=== PATIENT | female | born 1960 | race Caucasian/White ===

== ENCOUNTER 2016-07-07 12:37 | Emergency (ER) | payer BC ==
[2016-07-07] MEDS ORDERED: IPRATROPIUM/ALBUTEROL (0.5MG/3MG) NEB INH ONE (12:43)
[2016-07-07] MEDS ORDERED: 0.9 % SODIUM CHLORIDE 1000ML 1,000 ML IV PRN (12:43)
[2016-07-07 12:52] LABS: BASO % 0.6 % (0-6); EOS % 3.2 % (0-6); GRAN % 61.4 % (47-80); HEMATOCRIT 43.3 % (35.0-47.0); HEMOGLOBIN 14.3 gm/dl (11.6-16.0); LYMPH % 20.4 % (16-45); MEAN CELL VOLUME 98.4 fl (81-97); MEAN CORPUSCULAR HEMOGLOBIN 32.5 pg (27-33); MEAN PLATELET VOLUME 9.8 fl (7.4-10.4); MONO % 14.4 % (0-9); PLATELET COUNT 261 K/uL (130-400); RED CELL DISTRIBUTION WIDTH 14.8 % (11.5-14.5); WHITE BLOOD COUNT W/O DIFF 6.7 K/uL (4.2-12.2)
--- NOTE | 2016-07-07 12:59 | Emergency Department Record ---
History of Present Illness - General Chief Complaint: Shortness of breath Stated Complaint: RENÉ Time Seen by Provider: 07/07/16 12:40 Source: Patient, RN notes reviewed Mode of Arrival: Ambulatory - History of Present Illness Initial Comments: congestion and cough for 2-3 days but nasal congestion for 10 days and her is coming down with the same things. PMH ME in september 2015 and a stent placed at [facility]. Patient denies chest pain and no nause ,vomiting or diarrhea. Patient is overweight. PCP Dr Yuan Pinon MD Complaint: Cough, Shortness of breath Onset/Timin -: Days(s) Improves With: Nothing Worsens With: Exertion, Lying flat, Movement Known History Of: COPD, Diabetes Context: Recent URI Associated Symptoms: Cough Treatments Prior to Arrival: Asprin, Bronchodilator - Related Data Home Oxygen Therapy: No Home Medications Medication Instructions Recorded Confirmed Last Taken Aclidinium [place] [Tudorza 400 mcg IH DAILY 09/24/15 07/07/16 07/07/16 Pressair] Budesonide/Formoterol Fumarate 10.2 gm IH DAILY 09/24/15 07/07/16 07/07/16 [Symbicort 160-4.5 Mcg Inhaler] Fluoxetine HCl [Prozac] 40 mg PO DAILY 09/24/15 07/07/16 07/07/16 Metformin HCl [Glucophage Ir] 500 mg PO BID 09/24/15 07/07/16 07/07/16 Tramadol HCl [Ultram] 50 mg PO Q8H PRN 09/24/15 07/07/16 07/07/16 Zolpidem Tartrate [Ambien] 10 mg PO QHS 09/24/15 07/07/16 07/06/16 Allergies Allergy/AdvReac Type Severity Reaction Status Date / Time Penicillins [PENICILLINS] Allergy Intermediate HIVES Verified 09/24/15 09:02 Travel Screening - Travel/Exposure Within Last 30 Days Have you traveled within the last 30 days?: No - Travel/Exposure Within Last Year Have you traveled outside the [place] in the last year?: No - Additonal Travel Details Have you been exposed to anyone with a communicable illness?: No - Travel Symptoms Symptom Screening: None Review of Systems Reviewed: No additional complaints except as noted below Constitutional: Reports: As per HPI. Denies: Chills, Fever, Malaise, Night sweats, Weakness, Weight change Eyes: Reports: As per HPI. Denies: Eye discharge, Eye pain, Photophobia, Vision change ENT: Reports: As per HPI, Congestion. Denies: Dental pain, Ear pain, Epistaxis , Hearing loss, Throat pain Respiratory: Reports: As per HPI, Cough, Dyspnea, Wheezes. Denies: Hemoptysis, Stridor Cardiovascular: Reports: As per HPI. Denies: Arrhythmia, Chest pain, Dyspnea on exertion, Edema, Murmurs, Orthopnea, Palpitations, Paroxysmal nocturnal dyspnea, Rheumatic Fever, Syncope Endocrine: Reports: As per HPI. Denies: Fatigue, Heat or cold intolerance, Polydipsia, Polyuria Gastrointestinal: Reports: As per HPI. Denies: Abdominal pain, Constipation, Diarrhea, Hematemesis, Hematochezia, Melena, Nausea, Vomiting Genitourinary: Reports: As per HPI. Denies: Abnormal menses, Discharge, Dyspareunia, Dysuria, Frequency, Hematuria, Incontinence, Retention, Urgency Musculoskeletal: Reports: As per HPI. Denies: Arthralgia, Back pain, Gout, Joint swelling, Myalgia, Neck pain Skin: Reports: As per HPI. Denies: Bruising, Change in color, Change in hair/ nails, Lesions, Pruritus, Rash Neurological: Reports: As per HPI. Denies: Abnormal gait, Confusion, Headache, Numbness, Paresthesias, Seizure, Tingling, Tremors, Vertigo, Weakness Psychiatric: Reports: As per HPI. Denies: Anxiety, Auditory hallucinations, Depression, Homicidal thoughts, Suicidal thoughts, Visual hallucinations Hematological/Lymphatic: Reports: As per HPI. Denies: Anemia, Blood Clots, Easy bleeding, Easy bruising, Swollen glands Past Medical History - SOCIAL HISTORY Smoking Status: Current every day smoker - RESPIRATORY Hx Respiratory Disorders: Yes Hx COPD: Yes - CARDIOVASCULAR Hx Cardio Disorders: No - NEURO Hx Neuro Disorders: No - GI Hx GI Disorders: Yes Hx Reflux: Yes - Hx Genitourinary Disorders: No - ENDOCRINE Hx Endocrine Disorders: Yes Hx Diabetes: Yes - MUSCULOSKELETAL Hx Musculoskeletal Disorders: Yes Hx Arthritis: Yes - PSYCH Hx Psych Problems: Yes Hx Anxiety: Yes - HEMATOLOGY/ONCOLOGY Hx Hematology/Oncology Disorders: No Family Medical History Hx Diabetes: Mother, Brother/Sister Hx Heart Disease: Father *Heart Comment: Father before 50, of [place] Hx HTN: Father, Mother, Brother/Sister Physical Exam - General General Appearance: Alert, Oriented x3, Cooperative, Moderate distress - Head Head exam: Normal inspection - Eye Eye exam: Normal appearance, PERRL Pupils: Normal accommodation - ENT ENT exam: Normal exam, Mucous membranes moist, Normal external ear exam, Normal orophraynx, TM's normal bilaterally Ear exam: Normal external inspection. negative: External canal tenderness Nasal Exam: Normal inspection. negative: Discharge, Sinus tenderness Mouth exam: Normal external inspection, Tongue normal Teeth exam: Normal inspection. negative: Dental caries Throat exam: Normal inspection. negative: Tonsillar erythema, Tonsillar exudate - Neck Neck exam: Normal inspection, Full ROM. negative: Tenderness - Respiratory Respiratory exam: Respiratory distress (with exertion), Wheezes - Cardiovascular Cardiovascular Exam: Regular rate, Normal rhythm, Normal heart sounds - GI/Abdominal GI/Abdominal exam: Soft, Normal bowel sounds. negative: Tenderness - Rectal Rectal exam: Deferred - exam: Deferred - Extremities Extremities exam: Normal inspection, Full ROM, Normal capillary refill. negative: Tenderness - Back Back exam: Reports: Normal inspection, Full ROM. Denies: Muscle spasm, Rash noted, Tenderness - Neurological Neurological exam: Alert, Normal gait, Oriented X3, Reflexes normal - Psychiatric Psychiatric exam: Normal affect, Normal mood - Skin Skin exam: Dry, Intact, Normal color, Warm Course Vital Signs 07/07/16 07/07/16 12:42 12:51 Temperature 97.8 F Pulse Rate 64 66 Respiratory 21 17 Rate Blood Pressure 138/69 Pulse Ox 94 L 95 - Reevaluation(s) Reevaluation #1: patient still short of breath and she wants to be admitted at [facility] and currently not settling down enough to send home. 07/07/16 14:23 Reevaluation #2: Patient very dyspneic getting up to sit on the comode 07/07/16 14:25 07/07/16 14:25 Reevaluation #3: discussed case with Dr. Mcallister and he accepted the admission. 07/07/16 14:53 Medical Decision Making - Data Complexity MDM Data: Labs Ordered and/or Reviewed (wbc 6,700), X-Ray Ordered and/or Reviewed, EKG Ordered and/or Reviewed (EKG old inferior wall ME and no acute changes today ) - Lab Data Result diagrams: 07/07/16 12:45 07/07/16 12:45 Lab Results 07/07/16 Range/Units 12:45 WBC 6.7 (4.2-12.2) K/uL RBC 4.40 (3.80-5.40) M/uL Hgb 14.3 (11.6-16.0) gm/dl Hct 43.3 (35.0-47.0) % MCV 98.4 H (81-97) fl MCH 32.5 (27-33) pg MCHC 33.0 (32-36) g/dl RDW 14.8 H (11.5-14.5) % Plt Count 261 (130-400) K/uL MPV 9.8 (7.4-10.4) fl Gran % 61.4 (47-80) % Lymphocytes % 20.4 (16-45) % Monocytes % 14.4 H (0-9) % Eosinophils % 3.2 (0-6) % Basophils % 0.6 (0-6) % Disposition Clinical Impression: Bronchitis COPD (chronic obstructive pulmonary disease) Qualifiers: COPD type: COPD with acute exacerbation Qualified Code(s): J44.1 - Chronic obstructive pulmonary disease with (acute) exacerbation Disposition: Acute Care Hospital Transfer Condition: (2) Stable Forms: Patient Portal Access Time of Disposition: 14:38
[2016-07-07] MEDS ORDERED: METHYLPREDNISOLONE PF 125MG/VIAL IVP ONE (13:03)
[2016-07-07 13:08] LABS: ANION GAP 15.8 (7-16); BLOOD UREA NITROGEN 11 mg/dL (7-17); CARBON DIOXIDE 26.2 mmol/L (22-30); CREATININE 0.6 mg/dL (0.52-1.04); EST GLOMERULAR FILTRATION RATE > 60 ml/min; GLUCOSE,RANDOM 158 mg/dL (70-110)
[2016-07-07] MEDS ORDERED: ALBUTEROL SULFATE (0.083%) 2.5 MG/3 ML NEB INH ONE ×2 (13:11→14:55)
[2016-07-07 13:26] LABS: TROPONIN I < 0.012 ng/mL (0.00-0.034)
[2016-07-07] MEDS ORDERED: CEFTRIAXONE SODIUM 1 GM in 0.9 % SODIUM CHLORIDE 100ML 100 ML IVPB ONE (14:34)
[2016-07-07] MEDS ORDERED: AZITHROMYCIN 500 MG TABLET PO ONE (14:37)
--- NOTE | 2016-07-11 12:26 | RADIOLOGY REPORT ---
DATE: 07/07/2016. EXAM: TWO VIEWS OF THE CHEST. HISTORY: The patient has had a cough, wheezing, and shortness of breath for one week. COMPARISON: Study dated 09/24/2015. TECHNIQUE: Two views of the chest were provided. FINDINGS: The cardiomediastinal silhouette is within normal limits for size and contour. The dinora appear unremarkable. There is no radiographic evidence of a focal infiltrate or pleural effusion. IMPRESSION: NO RADIOGRAPHIC EVIDENCE OF AN ACUTE INTRATHORACIC PROCESS. JOB NUMBER: [id number] [facility]
== END 2016-07-07 15:38 | disposition short-term general hospital (02) ==
LOC: ER 12:37
DX: J44.1 Chronic obstructive pulmonary disease with (acute) exacerbation (principal); E11.9 Type 2 diabetes mellitus without complications; F17.210 Nicotine dependence, cigarettes, uncomplicated; I25.2 Old myocardial infarction; Z79.84 Long term (current) use of oral hypoglycemic drugs
CPT/HCPCS: 71020; 80048; 82553; 84484; 85025; 85730; 93005; 93010; 94640; 96365; 96375; 99285; J2930; J7613

== ENCOUNTER 2016-07-29 19:56 | Inpatient (IN) | payer BC, MEDICARE ==
--- NOTE | 2016-07-29 20:37 | Emergency Department Record ---
History of Present Illness - General Chief complaint: Swelling of legs Stated complaint: CELULITIS BOTH LEGS Time Seen by Provider: 07/29/16 20:30 Source: Patient Mode of Arrival: Ambulatory Limitations: No limitations - History of Present Illness Initial comments: 56 yo female presents with bilateral erythema of the lower legs with swelling that had started mild the last 2 days and then increased today. No fevers or chills. She has had cellulitis in the past. She is a diabetic. No fevers. No chills. No cough. No HTN but she has CAD. No allergies to antibiotics. No weeping or blisters on the skin. She does not recall and scratches or injury. No weakness or numbness. Onset/Timin -: Days(s) Location: Left, Right, Lower Leg Severity scale (1-10): 8 Quality: Aching, Burning Consistency: Constant - Related Data Home Medications Medication Instructions Recorded Confirmed Last Taken Aclidinium [place] [Tudorza 400 mcg IH DAILY 09/24/15 07/29/16 Unknown Pressair] Fluoxetine HCl [Prozac] 40 mg PO DAILY 09/24/15 07/29/16 Unknown Tramadol HCl [Ultram] 50 mg PO Q8H PRN 09/24/15 07/29/16 Unknown Aspirin [Aspir-Low] 81 mg PO DAILY 07/07/16 07/29/16 Unknown Atorvastatin Calcium [Lipitor] 40 mg PO DAILY 07/07/16 07/29/16 Unknown Budesonide/Formoterol Fumarate 10.2 gm IH DAILY 07/07/16 07/29/16 Unknown [Symbicort 160-4.5 Mcg Inhaler] Metoprolol Tartrate [Lopressor] 25 mg PO Q12H 07/07/16 07/29/16 Unknown Omeprazole 40 mg PO DAILY 07/07/16 07/29/16 Unknown Ticagrelor [Brilinta] 90 mg PO BID 07/07/16 07/29/16 Unknown Zolpidem Tartrate 10 mg PO QHS PRN 07/07/16 07/29/16 Unknown Calcium Carbonate [Calcium] 600 mg PO DAILY 07/29/16 07/29/16 Unknown Cholecalciferol (Vitamin D3) 5,000 unit PO DAILY 07/29/16 07/29/16 Unknown [Vitamin D3] Cyanocobalamin (Vitamin B-12) 2,000 mcg PO DAILY 07/29/16 07/29/16 Unknown [Vitamin B-12] Garlic 1,000 mg PO DAILY 07/29/16 07/29/16 Unknown Metformin HCl [Glucophage] 500 mg PO BID 07/29/16 07/29/16 Unknown Multivitamin [Daily Multiple 1 each PO DAILY 07/29/16 07/29/16 Unknown Vitamin] Allergies Allergy/AdvReac Type Severity Reaction Status Date / Time Penicillins [PENICILLINS] Allergy Intermediate HIVES Verified 09/24/15 09:02 clindamycin HCl Allergy RASH Verified 07/29/16 21:07 [From Cleocin] clindamycin palmitate HCl Allergy RASH Verified 07/29/16 21:07 [From Cleocin] clindamycin phosphate Allergy RASH Verified 07/29/16 21:07 [From Cleocin] Travel Screening - Travel/Exposure Within Last 30 Days Have you traveled within the last 30 days?: No Review of Systems Constitutional: Denies: Chills, Fever, Malaise, Weakness Eyes: Denies: Eye discharge ENT: Denies: Congestion, Throat pain Respiratory: Denies: Cough, Dyspnea, Hemoptysis, Wheezes Cardiovascular: Denies: Chest pain, Palpitations, Syncope Endocrine: Denies: Fatigue Gastrointestinal: Denies: Abdominal pain, Diarrhea, Nausea, Vomiting Genitourinary: Denies: Dysuria, Urgency Musculoskeletal: Reports: Joint swelling. Denies: Arthralgia, Back pain Skin: Reports: Change in color, Rash. Denies: Bruising Neurological: Denies: Headache Psychiatric: Denies: Anxiety Hematological/Lymphatic: Denies: Blood Clots, Easy bleeding, Easy bruising, Swollen glands Past Medical History - SOCIAL HISTORY Smoking Status: Light tobacco smoker (<10/day) Alcohol Use: None Drug Use: None - RESPIRATORY Hx Respiratory Disorders: Yes Hx COPD: Yes - CARDIOVASCULAR Hx Cardio Disorders: No Hx Cardiac Cath: Yes Hx Heart Attack: Yes (Stent placed 09/24/2015) Comment:: Heart attack September [id number] - NEURO Hx Neuro Disorders: No - GI Hx GI Disorders: Yes Hx Reflux: Yes - Hx Genitourinary Disorders: No - ENDOCRINE Hx Endocrine Disorders: Yes Hx Diabetes: Yes - MUSCULOSKELETAL Hx Musculoskeletal Disorders: Yes Hx Arthritis: Yes - PSYCH Hx Psych Problems: Yes Hx Anxiety: Yes - HEMATOLOGY/ONCOLOGY Hx Hematology/Oncology Disorders: No Family Medical History Any Significant Family History?: Yes Hx Diabetes: Mother, Brother/Sister Hx Heart Disease: Father *Heart Comment: Father before 50, of [place] Hx HTN: Father, Mother, Brother/Sister Physical Exam - General General Appearance: Alert, Oriented x3, Cooperative, No acute distress Limitations: No limitations - Head Head exam: Normal inspection - Eye Eye exam: Normal appearance, PERRL. negative: Conjunctival injection - ENT ENT exam: Normal exam Ear exam: Normal external inspection Nasal Exam: Normal inspection Mouth exam: Normal external inspection Teeth exam: Normal inspection Throat exam: Normal inspection - Neck Neck exam: Normal inspection, Full ROM. negative: Tenderness - Respiratory Respiratory exam: Normal lung sounds bilaterally. negative: Respiratory distress - Cardiovascular Cardiovascular Exam: Regular rate, Normal rhythm, Normal heart sounds - GI/Abdominal GI/Abdominal exam: Soft - Rectal Rectal exam: Deferred - exam: Deferred - Extremities Extremities exam: Full ROM, Normal capillary refill, Pedal edema, Tenderness. negative: Normal inspection Image of Full Body: 1 - moderately prominent erythema, no blisters, warm to the touch 2 - erythema, warmth to the touch, no blisters or bruises - Back Back exam: Reports: Normal inspection, Full ROM. Denies: Muscle spasm, Rash noted, Tenderness - Neurological Neurological exam: Alert, Normal gait, Oriented X3, Reflexes normal - Psychiatric Psychiatric exam: Normal affect, Normal mood - Skin Skin exam: Erythema Course Vital Signs 07/29/16 20:08 Temperature 98.1 F Pulse Rate [ 95 H Pulse Ox Probe] Respiratory 20 Rate Blood Pressure 133/89 [Left Arm] Pulse Ox 94 L - Reevaluation(s) Reevaluation #1: The labs were reviewed No acute changes of the CBC She has mild increase in CRP at 2.1 No significant changes of the CMP I recommend admission for IV antibiotics given her DM and cellulitis Her PCP is Dr Pinon of [facility] [place]. I offered transfer if she preferred. She prefers to stay at [facility] IV Kefzol and Vanco 07/29/16 21:36 07/30/16 05:00 Medical Decision Making - Lab Data Result diagrams: 07/29/16 20:47 07/29/16 20:47 Disposition Disposition: Admit Clinical Impression: Cellulitis Qualifiers: Site of cellulitis: extremity Site of cellulitis of extremity: lower extremity Laterality: unspecified laterality Qualified Code(s): L03.119 - Cellulitis of unspecified part of limb Disposition: Home, Self-Care Decision to Admit: Admit from ER Decision to Admit Date: 07/29/16 Decision to Admit Time: 21:42 Condition: (1) Good Time of Disposition: 21:42
[2016-07-29] MEDS ORDERED: CLINDAMYCIN 600MG/50ML PREMIX 600 MG in DEXTROSE 1 BAG IV ONE (20:40)
[2016-07-29] MEDS ORDERED: VANCOMYCIN HCL 1,500 MG in 0.9 % SODIUM CHLORIDE 500ML 500 ML IVPB ONE (20:55)
[2016-07-29 21:04] LABS: BASO % 0.2 % (0-6); EOS % 3.3 % (0-6); GRAN % 59.3 % (47-80); HEMATOCRIT 43.8 % (35.0-47.0); HEMOGLOBIN 14.4 gm/dl (11.6-16.0); LYMPH % 27.9 % (16-45); MEAN CELL VOLUME 97.8 fl (81-97); MEAN CORPUSCULAR HEMOGLOBIN 32.1 pg (27-33); MEAN CORPUSCULAR HGB CONC 32.9 g/dl (32-36); MEAN PLATELET VOLUME 10.2 fl (7.4-10.4); MONO % 9.3 % (0-9); PLATELET COUNT 262 K/uL (130-400); RED BLOOD COUNT 4.48 M/uL (3.80-5.40); RED CELL DISTRIBUTION WIDTH 14.9 % (11.5-14.5); WHITE BLOOD COUNT W/O DIFF 8.8 K/uL (4.2-12.2)
[2016-07-29 21:13] LABS: INR 0.95; PARTIAL THROMBOPLASTIN TIME 28.2 SECONDS (24.5-39.1); PROTHROMBIN TIME (PATIENT) 10.7 SECONDS (9.5-12.1)
[2016-07-29 21:16] LABS: ALB/GLOB RATIO 1.3 (1.1-1.8); ALBUMIN 4.3 gm/dL (3.5-5.0); ALKALINE PHOSPHATASE 115 U/L (38-126); ALT/SGPT 54 U/L (9-52); ANION GAP 14.3 (7-16); AST/SGOT 41 U/L (14-36); BILIRUBIN,TOTAL 0.47 mg/dL (0.2-1.3); BLOOD UREA NITROGEN 14 mg/dL (7-17); C-REACTIVE PROTEIN 2.1 mg/dL (0.0-0.9); CARBON DIOXIDE 28.7 mmol/L (22-30); CREATININE 0.8 mg/dL (0.52-1.04); EST GLOMERULAR FILTRATION RATE > 60 ml/min; GLUCOSE,RANDOM 169 mg/dL (70-110); TOTAL PROTEIN 7.6 gm/dL (6.3-8.2)
[2016-07-29] MEDS ORDERED: CEFAZOLIN 2 Gram 2 GM in DEXTROSE 1 BAG IVPB ONE (21:26)
[2016-07-29] MEDS ORDERED: HYDROCODONE/APAP 7.5/325MG TABLET PO ONE (21:35)
[2016-07-29 22:03] LABS: ERYTHROCYTE SEDIMENTATION RATE 26 mm/hr (0-30)
[2016-07-30] MEDS: VANCOMYCIN HCL 1,500 MG in 0.9 % SODIUM CHLORIDE 500ML 500 ML IVPB SCH ×3 (00:28→22:28)
[2016-07-30] MEDS: METOPROLOL TART 25 MG TABLET PO SCH ×3 (00:30→20:24)
[2016-07-30] MEDS: METFORMIN 500 MG TABLET PO SCH ×3 (00:30→20:25)
[2016-07-30] MEDS: CEFAZOLIN 2 Gram 2 GM in DEXTROSE 1 BAG IVPB SCH ×3 (01:01→17:58)
[2016-07-30 06:42] LABS: BASO % 0.5 % (0-6); EOS % 4.7 % (0-6); GRAN % 53.1 % (47-80); HEMATOCRIT 41.1 % (35.0-47.0); HEMOGLOBIN 13.4 gm/dl (11.6-16.0); LYMPH % 30.7 % (16-45); MEAN CELL VOLUME 98.8 fl (81-97); MEAN CORPUSCULAR HEMOGLOBIN 32.2 pg (27-33); MEAN CORPUSCULAR HGB CONC 32.6 g/dl (32-36); MEAN PLATELET VOLUME 10.6 fl (7.4-10.4); PLATELET COUNT 248 K/uL (130-400); RED BLOOD COUNT 4.16 M/uL (3.80-5.40); WHITE BLOOD COUNT W/O DIFF 7.9 K/uL (4.2-12.2)
[2016-07-30 07:18] LABS: ANION GAP 13.8 (7-16); BLOOD UREA NITROGEN 17 mg/dL (7-17); CARBON DIOXIDE 29.2 mmol/L (22-30); CREATININE 0.7 mg/dL (0.52-1.04); EST GLOMERULAR FILTRATION RATE > 60 ml/min; GLUCOSE,RANDOM 180 mg/dL (70-110)
[2016-07-30] MEDS: HYDROCODONE/APAP 7.5/325MG TABLET PO PRN ×2 (08:27→18:33)
[2016-07-30] MEDS ORDERED: FLUOXETINE HCL 20 MG CAPSULE PO SCH (10:00)
[2016-07-30] MEDS ORDERED: ASPIRIN 81 MG TABEC PO SCH (10:00)
[2016-07-30] MEDS ORDERED: ATORVASTATIN 20 MG TABLET PO SCH (10:00)
[2016-07-30] MEDS ORDERED: ENOXAPARIN 40 MG/0.4 ML SYR SC SCH (10:00)
[2016-07-30] MEDS ORDERED: ACLIDINIUM BROMIDE 400 MCG IH SCH (10:00)
--- NOTE | 2016-07-30 10:14 | History & Physical ---
History of Present Illness - Date of Service Date of Service for History & Physical: 08/02/16 - History of Present Illness Admitting Diagnosis: Cellulitis, Diabetes History of Present Illness: Sylvia Durand is a 56 y/o female with chronic history of cellulitis presented with 2 day history bilat lower extremity erythema, pain and increased swelling. Symptoms very similar to previous cellulitis infections. Of note, she reports first occurrence of BLE cellulitis 5 years ago in which she "was so sick", she was admitted for IV antibiotics, was followed by infectious diseases and eventually was followed by a wound doctor in the [facility] for RLE wound care due to blistering of skin. Has had reoccurrence of cellulitis since and has only received IV antibiotics. No known Hx MRSA. Has consulted with a "vascular specialist" 5 years ago after hospitalization and worked up for peripheral vascular insufficiency PCP: Dr Yuan Pinon Pertinent past medical history includes: previous cellulitis BLE, diabetes, CAD , [place] with stent placement 2015 Past surgical history includes: no significant report Travel Screening - Travel/Exposure Within Last 30 Days Have you traveled within the last 30 days?: No - Travel/Exposure Within Last Year Have you traveled outside the [place] in the last year?: No - Additonal Travel Details Have you been exposed to anyone with a communicable illness?: No Review of Systems Constitutional: Denies: Chills, Fever, Malaise, Weakness Eyes: Denies: Eye discharge ENT: Denies: Congestion, Throat pain Respiratory: Denies: Cough, Dyspnea, Hemoptysis, Wheezes Cardiovascular: Denies: Chest pain, Palpitations, Syncope Endocrine: Denies: Fatigue Gastrointestinal: Denies: Abdominal pain, Diarrhea, Nausea, Vomiting Genitourinary: Denies: Dysuria, Urgency Musculoskeletal: Reports: Joint swelling. Denies: Arthralgia, Back pain Skin: Reports: Change in color, Rash. Denies: Bruising Neurological: Denies: Headache Psychiatric: Denies: Anxiety Hematological/Lymphatic: Denies: Blood Clots, Easy bleeding, Easy bruising, Swollen glands Past Medical History - SOCIAL HISTORY Smoking Status: Light tobacco smoker (<10/day) Alcohol Use: None Drug Use: None - RESPIRATORY Hx Respiratory Disorders: Yes Hx COPD: Yes - CARDIOVASCULAR Hx Cardio Disorders: No Hx Cardiac Cath: Yes Hx Heart Attack: Yes (Stent placed 09/24/2015) Comment:: Heart attack September [id number] - NEURO Hx Neuro Disorders: No - GI Hx GI Disorders: Yes Hx Reflux: Yes - Hx Genitourinary Disorders: No - ENDOCRINE Hx Endocrine Disorders: Yes Hx Diabetes: Yes - MUSCULOSKELETAL Hx Musculoskeletal Disorders: Yes Hx Arthritis: Yes - PSYCH Hx Psych Problems: Yes Hx Anxiety: Yes - HEMATOLOGY/ONCOLOGY Hx Hematology/Oncology Disorders: No Family Medical History Any Significant Family History?: Yes Hx Diabetes: Mother, Brother/Sister Hx Heart Disease: Father *Heart Comment: Father before 50, of [place] Hx HTN: Father, Mother, Brother/Sister H&P Meds/Allergies - Allergies Allergies: Allergies Allergy/AdvReac Type Severity Reaction Status Date / Time Penicillins [PENICILLINS] Allergy Intermediate HIVES Verified 09/24/15 09:02 clindamycin HCl Allergy RASH Verified 07/29/16 21:07 [From Cleocin] clindamycin palmitate HCl Allergy RASH Verified 07/29/16 21:07 [From Cleocin] clindamycin phosphate Allergy RASH Verified 07/29/16 21:07 [From Cleocin] - Home Medications Home Medications Medication Instructions Recorded Confirmed Last Taken Aclidinium [place] [Tudorza 1 inh IH BID MDD 2 09/24/15 07/31/16 Unknown Pressair] Fluoxetine HCl [Prozac] 40 mg PO DAILY 09/24/15 07/29/16 Unknown Tramadol HCl [Ultram] 50 mg PO Q8H PRN 09/24/15 07/29/16 Unknown Aspirin [Aspir-Low] 81 mg PO DAILY 07/07/16 07/29/16 Unknown Atorvastatin Calcium [Lipitor] 40 mg PO DAILY 07/07/16 07/29/16 Unknown Budesonide/Formoterol Fumarate 2 puff IH BID MDD 4 07/07/16 07/31/16 Unknown [Symbicort 160-4.5 Mcg Inhaler] Metoprolol Tartrate [Lopressor] 25 mg PO Q12H 07/07/16 07/29/16 Unknown Omeprazole 40 mg PO DAILY 07/07/16 07/29/16 Unknown Ticagrelor [Brilinta] 90 mg PO BID 07/07/16 07/29/16 Unknown Zolpidem Tartrate 10 mg PO QHS PRN 07/07/16 07/29/16 Unknown Calcium Carbonate [Calcium] 600 mg PO DAILY 07/29/16 07/29/16 Unknown Cholecalciferol (Vitamin D3) 5,000 unit PO DAILY 07/29/16 07/29/16 Unknown [Vitamin D3] Cyanocobalamin (Vitamin B-12) 2,000 mcg PO DAILY 07/29/16 07/29/16 Unknown [Vitamin B-12] Garlic 1,000 mg PO DAILY 07/29/16 07/29/16 Unknown Metformin HCl [Glucophage] 500 mg PO BID 07/29/16 07/29/16 Unknown Multivitamin [Daily Multiple 1 each PO DAILY 07/29/16 07/29/16 Unknown Vitamin] Previous Rx's Medication Instructions Recorded Cephalexin [Keflex] 500 mg PO QID #40 cap 08/02/16 Tramadol HCl [Ultram] 50 mg PO Q8H PRN #30 tablet 08/02/16 Vancomycin/0.9 % Sod Chloride 500 mg IV BID 10 Days 08/02/16 [Vanco 500 mg/100 ml-0.9% NaCl] - Active Medications Active Medications: Current Medications Acetaminophen/Hydrocodone Bitart ([place] 7.5mg/325mg) 1 each PO Q6H PRN PRN Reason: Pain - General Last Admin: 07/30/16 08:27 Dose: 1 each Aspirin (Ecotrin (Ec)) 81 mg PO DAILY [facility] Atorvastatin Calcium (Lipitor) 40 mg PO QPM [facility] Enoxaparin Sodium (Lovenox) 40 mg SC DAILY [facility] Fluoxetine HCl (Prozac) 40 mg PO DAILY [facility] Cefazolin Sodium 2 gm/ Glucose 50 mls @ 125 mls/hr IVPB Q8H [facility] Stop: 08/03/16 23:40 Last Admin: 07/30/16 01:01 Dose: 125 mls/hr Vancomycin HCl 1,500 mg/ (Sodium Chloride) 500 mls @ 250 mls/60 min IVPB Q12H [facility] Stop: 08/03/16 22:00 Last Admin: 07/30/16 00:28 Dose: 250 mls/60 min Metformin HCl (Glucophage Ir) 500 mg PO BID [facility] Last Admin: 07/30/16 00:30 Dose: Not Given Metoprolol Tartrate (Lopressor) 25 mg PO Q12H [facility] Last Admin: 07/30/16 00:30 Dose: Not Given Non-Formulary Medication (Aclidinium [place] [Tudorza Pressair]) 400 mcg IH DAILY [facility] Non-Formulary Medication (Budesonide/Formoterol Fumarate [Symbicort 160-4.5 Mcg Inhaler]) 10.2 gm IH DAILY [facility] Physical Exam - Vital Signs Vital Signs: Vital Signs - Last 24 Hrs Temp Pulse Resp BP Pulse Ox 07/30/16 07:39 97.9 F 79 20 125/63 92 L 07/29/16 23:25 97.5 F L 80 22 159/81 92 L - General General Appearance: Alert, Oriented x3, Cooperative, No acute distress Limitations: No limitations - Head Head exam: Normal inspection - Eye Eye exam: Normal appearance, PERRL. negative: Conjunctival injection - ENT ENT exam: Normal exam Ear exam: Normal external inspection Nasal Exam: Normal inspection Mouth exam: Normal external inspection Teeth exam: Normal inspection Throat exam: Normal inspection - Neck Neck exam: Normal inspection, Full ROM. negative: Tenderness - Respiratory Respiratory exam: Normal lung sounds bilaterally. negative: Respiratory distress - Cardiovascular Cardiovascular Exam: Regular rate, Normal rhythm, Normal heart sounds Peripheral Pulses: 0: Dorsalis Pedis (R) (difficult to palpate due to edema and patient intolerance due to pain. Foot warm, cap refill normal), Dorsalis Pedis ( L) (difficult to palpate due to edema and patient intolerance due to pain. Foot warm, cap refill normal) - GI/Abdominal GI/Abdominal exam: Soft - Rectal Rectal exam: Deferred - exam: Deferred - Extremities Extremities exam: Full ROM, Normal capillary refill, Pedal edema (2+ pitting, extremely tender to touch), Tenderness. negative: Normal inspection - Back Back exam: Reports: Normal inspection, Full ROM. Denies: Muscle spasm, Rash noted, Tenderness - Neurological Neurological exam: Alert, Normal gait, Oriented X3, Reflexes normal - Psychiatric Psychiatric exam: Normal affect, Normal mood - Skin Skin exam: Erythema (well demarcated erythema bilat lower extremities ankle to knee, very warm to touch, R>L, mild early blisteirng to RLE lateral aspect) Results - Labs Result Diagrams: 08/01/16 06:05 08/01/16 06:05 Labs Last 24 Hours: Laboratory Results - last 24 hr 07/29/16 07/30/16 07/30/16 23:39 00:15 06:10 WBC 7.9 RBC 4.16 Hgb 13.4 Hct 41.1 MCV 98.8 H MCH 32.2 MCHC 32.6 RDW 15.0 H Plt Count 248 MPV 10.6 H Gran % 53.1 Lymphocytes % 30.7 Monocytes % 11.0 H Eosinophils % 4.7 Basophils % 0.5 Sodium Potassium Chloride Carbon Dioxide Anion Gap BUN Creatinine Estimated GFR Random Glucose Calcium Vancomycin Peak Cancelled 14.9 L Vancomycin Trough Cancelled 07/30/16 07:00 WBC RBC Hgb Hct MCV MCH MCHC RDW Plt Count MPV Gran % Lymphocytes % Monocytes % Eosinophils % Basophils % Sodium 138 Potassium 4.1 Chloride 95 L Carbon Dioxide 29.2 Anion Gap 13.8 BUN 17 Creatinine 0.7 Estimated GFR > 60 Random Glucose 180 H Calcium 9.5 Vancomycin Peak Vancomycin Trough VTE H&P Assessment - Risk for VTE Risk for VTE: Yes Risk Level: Moderate Risk Assessment Date: 07/30/16 Risk Assessment Time: 10:16 VTE Orders Placed or Will Be Placed: Yes Plan - Inpatient Certification Inpatient Certification: Admit to inpatient care: Based on my medical assessment, after consideration of patient's risk factors (age, co-morbidities and patient presenting symptoms and acuity), I expect that this patient will remain in the hospital greater than or equal to two midnights and that the services needed warrant inpatient care because: Patient Risk Factors: [acute infection, pain management] Estimated length of stay: [48-72 hours] The patient may reasonably be expected to be discharged or transferred to a hospital within 96 hours after admission to [facility]. Services needed: [Iv antibiotics, pain management] Post hospital care (if known): [] I certify that my determination is in accordance with my understanding of Medicare requirements for reasonable and necessary inpatient services. 07/30/16 10:16 - Detailed Diagnosis and Plan (1) Cellulitis Current Visit: Yes Status: Acute Qualifiers: Site of cellulitis: extremity Site of cellulitis of extremity: lower extremity Laterality: unspecified laterality Qualified Code(s): L03.119 - Cellulitis of unspecified part of limb Base Code: L03.90 - CELLULITIS, UNSPECIFIED Comment: 08/02/16 Significantly improving with antibiotics. Here for recurrent BLE cellulitis with history of IV antibiotic treatment with PIC line 5 years ago with complications that are unclear per patient history. No reported hx MRSA. Saw vascular specialist 5 years ago. Will be obtaining previous hospital records for an acurate account of historical events. Venous doppler done on 07/30 to rule out DVT and negative. PIC line in patient and doing well. Will treat with outpatient vanco for 10 more days and oral keflex q6. (2) COPD (chronic obstructive pulmonary disease) Current Visit: Yes Status: Chronic Qualifiers: COPD type: COPD with acute exacerbation Qualified Code(s): J44.1 - Chronic obstructive pulmonary disease with (acute) exacerbation Base Code: J44.9 - CHRONIC OBSTRUCTIVE PULMONARY DISEASE, UNSPECIFIED Comment: 08/02/16 Continue with Symbicort 160/4.5 2 puffs QD as per home regimen Stable per patient report Does smoke intermittently and report she has not experienced any cravings since admission, advised to let nursing know if she feels she need a patch (3) Diabetes mellitus type 2 in obese Current Visit: Yes Status: Chronic Base Code: E11.9 - TYPE 2 DIABETES MELLITUS WITHOUT COMPLICATIONS; E66.9 - OBESITY, UNSPECIFIED Comment: 08/02/16 Known diabetic, reports poor adherance to diabetic diet, continue Metformin 500mg BID as per home regimen. Last A1c 7.8 per patient.. (4) HTN (hypertension) Current Visit: Yes Status: Chronic Base Code: I10 - ESSENTIAL (PRIMARY) HYPERTENSION Comment: 08/02/16 BP under control, continue Metoprolol 25mg BID as per home dosing (5) DVT prophylaxis Current Visit: Yes Status: Acute Base Code: [id number] - Comment: 08/02/16 will D/c lovenox since on brilanta and aspirin. Observing patient for possible error of patient taking 3 tabs of brilanta yesterday. VS stable and no sites of active bleeding. (6) Full code status Current Visit: Yes Status: Acute Base Code: Z78.9 - OTHER SPECIFIED HEALTH STATUS Comment: 07/30/16 Will remain full code status during this hospitalization
[2016-07-30] MEDS ORDERED: TRAMADOL HCL 50 MG TABLET PO PRN (10:15)
[2016-07-30] MEDS ORDERED: BUDESONIDE INH SCH (11:15)
[2016-07-30] MEDS ORDERED: FORMOTEROL FUMARATE INH SCH (11:15)
[2016-07-30] MEDS: PATIENT OWN MED: INH SCH ×4 (12:18→20:51)
[2016-07-30] MEDS: PATIENT OWN MED: PO SCH (20:23)
[2016-07-30] MEDS: ATORVASTATIN 20 MG TABLET PO SCH (20:25)
[2016-07-30] MEDS: ENOXAPARIN 40 MG/0.4 ML SYR SC SCH (20:26)
[2016-07-31] MEDS: CEFAZOLIN 2 Gram 2 GM in DEXTROSE 1 BAG IVPB SCH ×4 (01:37→23:51)
[2016-07-31] MEDS: PANTOPRAZOLE SODIUM 40 MG TABLET PO SCH (06:11)
[2016-07-31] MEDS: ASPIRIN 81 MG TABEC PO SCH (08:00)
[2016-07-31] MEDS: METFORMIN 500 MG TABLET PO SCH ×2 (08:00→20:56)
[2016-07-31] MEDS: PATIENT OWN MED: PO SCH ×2 (08:01→20:58)
[2016-07-31] MEDS: FLUOXETINE HCL 20 MG CAPSULE PO SCH (08:01)
[2016-07-31] MEDS: METOPROLOL TART 25 MG TABLET PO SCH ×2 (08:01→20:56)
[2016-07-31] MEDS: PATIENT OWN MED: INH SCH ×4 (09:21→20:23)
[2016-07-31] MEDS ORDERED: ACLIDINIUM BROMIDE 400 MCG INH SCH (10:00)
--- NOTE | 2016-07-31 10:19 | Physician Progress Note ---
Subjective - Date Date of Physician Progress Note: 07/31/16 Objective - Multidiciplinary Team Multidiciplinary Team: Nursing - Vital Signs Vital Signs: Vital Signs - Last 24 Hrs Temp Pulse Pulse Resp BP BP Pulse Ox 07/31/16 07:00 97.7 F 82 18 153/71 91 L 07/30/16 21:00 97.5 F L 69 22 112/64 94 L 07/30/16 20:52 70 22 94 L 07/30/16 20:45 73 20 07/30/16 14:56 98.1 F 73 20 120/53 94 L - General General Appearance: Alert, Oriented x3, Cooperative, No acute distress Limitations: No limitations - Head Head exam: Normal inspection - Eye Eye exam: Normal appearance, PERRL. negative: Conjunctival injection - ENT ENT exam: Normal exam Ear exam: Normal external inspection Nasal Exam: Normal inspection Mouth exam: Normal external inspection Teeth exam: Normal inspection Throat exam: Normal inspection - Neck Neck exam: Normal inspection, Full ROM. negative: Tenderness - Respiratory Respiratory exam: Normal lung sounds bilaterally. negative: Respiratory distress - Cardiovascular Cardiovascular Exam: Regular rate, Normal rhythm, Normal heart sounds - GI/Abdominal GI/Abdominal exam: Soft - Rectal Rectal exam: Deferred - exam: Deferred - Extremities Extremities exam: Full ROM, Normal capillary refill, Pedal edema, Tenderness. negative: Normal inspection - Back Back exam: Reports: Normal inspection, Full ROM. Denies: Muscle spasm, Rash noted, Tenderness - Neurological Neurological exam: Alert, Normal gait, Oriented X3, Reflexes normal - Psychiatric Psychiatric exam: Normal affect, Normal mood - Skin Skin exam: Erythema (on bilateral lower legs, receeding down below lines previously marked. Swelling noted in left foot> right. ) Assessment and Plan - Assessment and Plan (1) Cellulitis Current Visit: Yes Status: Acute Qualifiers: Site of cellulitis: extremity Site of cellulitis of extremity: lower extremity Laterality: unspecified laterality Qualified Code(s): L03.119 - Cellulitis of unspecified part of limb Base Code: L03.90 - CELLULITIS, UNSPECIFIED Comment: 07/31/16 Improving with antibiotics. Here for recurrent BLE cellulitis with history of IV antibiotic treatment with PIC line 5 years ago with complications that are unclear per patient history. No reported hx MRSA. Saw vascular specialist 5 years ago. Will be obtaining previous hospital records for an acurate account of historical events. Venous doppler done on 07/30 to rule out DVT in lower extremities and waiting report. Will order PIC line for patient. (2) DVT prophylaxis Current Visit: Yes Status: Acute Base Code: [id number] - Comment: 07/31/16 Will prophylax with Lovenox 40mg SQ QD, continue home dose Brillinta for event prevention s/p cardiac stent placement 09/2015 (3) Full code status Current Visit: Yes Status: Acute Base Code: Z78.9 - OTHER SPECIFIED HEALTH STATUS Comment: 07/30/16 Will remain full code status during this hospitalization (4) COPD (chronic obstructive pulmonary disease) Current Visit: Yes Status: Chronic Qualifiers: COPD type: COPD with acute exacerbation Qualified Code(s): J44.1 - Chronic obstructive pulmonary disease with (acute) exacerbation Base Code: J44.9 - CHRONIC OBSTRUCTIVE PULMONARY DISEASE, UNSPECIFIED Comment: 07/31/16 Continue with Symbicort 160/4.5 2 puffs QD as per home regimen Stable per patient report Does smoke intermittently and report she has not experienced any cravings since admission, advised to let nursing know if she feels she need a patch (5) Diabetes mellitus type 2 in obese Current Visit: Yes Status: Chronic Base Code: E11.9 - TYPE 2 DIABETES MELLITUS WITHOUT COMPLICATIONS; E66.9 - OBESITY, UNSPECIFIED Comment: 07/31/16 Known diabetic, reports poor adherance to diabetic diet, continue Metformin 500mg BID as per home regimen. (6) HTN (hypertension) Current Visit: Yes Status: Chronic Base Code: I10 - ESSENTIAL (PRIMARY) HYPERTENSION Comment: 07/31/16 BP under control, continue Metoprolol 25mg BID as per home dosing Results - Labs Result Diagrams: 08/01/16 06:05 08/01/16 06:05 DVT/PE Assessment - Risk for VTE Risk for VTE: No Risk Level: Moderate Risk Assessment Date: 07/30/16 Risk Assessment Time: 10:16 VTE Orders Placed or Will Be Placed: Yes - Active Medicaitons Current Medications: Current Medications Acetaminophen/Hydrocodone Bitart ([place] 7.5mg/325mg) 1 each PO Q6H PRN PRN Reason: Pain - General Last Admin: 07/30/16 18:33 Dose: 1 each Aspirin (Ecotrin (Ec)) 81 mg PO 0800 [id number] Last Admin: 07/31/16 08:00 Dose: 81 mg Atorvastatin Calcium (Lipitor) 40 mg PO 1999 [facility] Last Admin: 07/30/16 20:25 Dose: 40 mg Enoxaparin Sodium (Lovenox) 40 mg SC 1999 [facility] Last Admin: 07/30/16 20:26 Dose: 40 mg Fluoxetine HCl (Prozac) 40 mg PO 0800 [facility] Last Admin: 07/31/16 08:01 Dose: 40 mg Cefazolin Sodium 2 gm/ Glucose 50 mls @ 125 mls/hr IVPB Q8H [facility] Stop: 08/03/16 23:40 Last Admin: 07/31/16 07:58 Dose: 125 mls/hr Vancomycin HCl 1,500 mg/ (Sodium Chloride) 500 mls @ 250 mls/60 min IVPB BID [facility] Stop: 08/04/16 11:31 Last Admin: 07/30/16 22:28 Dose: 200 mls/60 min Metformin HCl (Glucophage Ir) 500 mg PO 799,1999 [facility] Last Admin: 07/31/16 08:00 Dose: 500 mg Metoprolol Tartrate (Lopressor) 25 mg PO 0800,1999 [facility] Last Admin: 07/31/16 08:01 Dose: 25 mg Pantoprazole Sodium (Protonix) 40 mg PO DAILY [facility] Last Admin: 07/31/16 06:11 Dose: 40 mg Patient Own Medication () 1 each PO 0800,1999 [facility] Last Admin: 07/31/16 08:01 Dose: 1 each Patient Own Medication () 1 each INH 799,1999 [facility] Last Admin: 07/31/16 09:21 Dose: 2 each Patient Own Medication () 1 each INH 0800 [facility] Last Admin: 07/31/16 09:22 Dose: 1 each Tramadol HCl (Ultram) 50 mg PO Q8H PRN PRN Reason: BREAKTHROUGH PAIN AMI Plan - Labs Result Diagrams: 08/01/16 06:05 08/01/16 06:05
[2016-07-31] MEDS: VANCOMYCIN HCL 1,500 MG in 0.9 % SODIUM CHLORIDE 500ML 500 ML IVPB SCH ×2 (11:09→21:01)
[2016-07-31] MEDS: 0.9 % SODIUM CHLORIDE 1000ML 1,000 ML IV PRN (11:13)
[2016-07-31] MEDS ORDERED: DIAZEPAM 5 MG TABLET PO PRN ×2 (12:44)
[2016-07-31] MEDS: HYDROCODONE/APAP 7.5/325MG TABLET PO PRN (16:39)
[2016-07-31] MEDS ORDERED: HEPARIN SODIUM FLUSH 100 UNITS/ML SYR 5ML IVP PRN (17:19)
[2016-07-31] MEDS ORDERED: 0.9 % SODIUM CHLORIDE 10ML SYR IVP PRN (17:19)
[2016-07-31] MEDS: ATORVASTATIN 20 MG TABLET PO SCH (20:56)
[2016-07-31] MEDS: ENOXAPARIN 40 MG/0.4 ML SYR SC SCH (20:58)
[2016-08-01] MEDS: HYDROCODONE/APAP 7.5/325MG TABLET PO PRN ×3 (01:55→17:32)
[2016-08-01] MEDS: PANTOPRAZOLE SODIUM 40 MG TABLET PO SCH (06:00)
[2016-08-01 06:42] LABS: ALB/GLOB RATIO 1.2 (1.1-1.8); ALBUMIN 3.6 gm/dL (3.5-5.0); ALKALINE PHOSPHATASE 90 U/L (38-126); ALT/SGPT 46 U/L (9-52); ANION GAP 10.7 (7-16); AST/SGOT 34 U/L (14-36); BILIRUBIN,TOTAL 0.45 mg/dL (0.2-1.3); BLOOD UREA NITROGEN 13 mg/dL (7-17); CARBON DIOXIDE 29.3 mmol/L (22-30); CREATININE 0.7 mg/dL (0.52-1.04); EST GLOMERULAR FILTRATION RATE > 60 ml/min; GLUCOSE,RANDOM 156 mg/dL (70-110); TOTAL PROTEIN 6.6 gm/dL (6.3-8.2)
[2016-08-01 06:46] LABS: BASO % 0.3 % (0-6); EOS % 5.3 % (0-6); HEMATOCRIT 38.9 % (35.0-47.0); HEMOGLOBIN 12.6 gm/dl (11.6-16.0); LYMPH % 34.5 % (16-45); MEAN CELL VOLUME 99.7 fl (81-97); MEAN CORPUSCULAR HEMOGLOBIN 32.3 pg (27-33); MEAN CORPUSCULAR HGB CONC 32.4 g/dl (32-36); MEAN PLATELET VOLUME 10.7 fl (7.4-10.4); MONO % 10.9 % (0-9); PLATELET COUNT 244 K/uL (130-400); WHITE BLOOD COUNT W/O DIFF 6.2 K/uL (4.2-12.2)
[2016-08-01] MEDS: PATIENT OWN MED: INH SCH ×3 (08:03→20:38)
[2016-08-01] MEDS: CEFAZOLIN 2 Gram 2 GM in DEXTROSE 1 BAG IVPB SCH ×2 (08:09→15:51)
[2016-08-01] MEDS: METFORMIN 500 MG TABLET PO SCH ×2 (08:09→20:29)
[2016-08-01] MEDS: METOPROLOL TART 25 MG TABLET PO SCH ×2 (08:09→20:30)
[2016-08-01] MEDS: FLUOXETINE HCL 20 MG CAPSULE PO SCH (08:10)
[2016-08-01] MEDS: ASPIRIN 81 MG TABEC PO SCH (08:10)
[2016-08-01] MEDS: PATIENT OWN MED: PO SCH ×3 (08:10→20:33)
[2016-08-01] MEDS: VANCOMYCIN HCL 1,500 MG in 0.9 % SODIUM CHLORIDE 500ML 500 ML IVPB SCH ×2 (10:54→21:55)
--- NOTE | 2016-08-01 13:05 | Physician Progress Note ---
Subjective - Date Date of Physician Progress Note: 08/01/16 - Subjective Subjective Comment: improving significantly, right foot more swollen still than left but per patient that is typical. U/S doppler of legs negative. Objective - Multidiciplinary Team Multidiciplinary Team: Nursing - Vital Signs Vital Signs: Vital Signs - Last 24 Hrs Temp Pulse Resp BP Pulse Ox 08/01/16 10:56 67 18 120/63 94 L 08/01/16 09:00 67 18 08/01/16 08:07 97.7 F 68 18 141/82 93 L 08/01/16 06:53 97.7 F 67 20 124/54 93 L 07/31/16 21:31 97.8 F 77 22 127/73 92 L 07/31/16 20:43 78 20 07/31/16 15:00 97.9 F 78 20 129/70 93 L - General General Appearance: Alert, Oriented x3, Cooperative, No acute distress Limitations: No limitations - Head Head exam: Normal inspection - Eye Eye exam: Normal appearance, PERRL. negative: Conjunctival injection - ENT ENT exam: Normal exam Ear exam: Normal external inspection Nasal Exam: Normal inspection Mouth exam: Normal external inspection Teeth exam: Normal inspection Throat exam: Normal inspection - Neck Neck exam: Normal inspection, Full ROM. negative: Tenderness - Respiratory Respiratory exam: Normal lung sounds bilaterally. negative: Respiratory distress - Cardiovascular Cardiovascular Exam: Regular rate, Normal rhythm, Normal heart sounds - GI/Abdominal GI/Abdominal exam: Soft - Rectal Rectal exam: Deferred - exam: Deferred - Extremities Extremities exam: Full ROM, Normal capillary refill, Pedal edema, Tenderness. negative: Normal inspection - Back Back exam: Reports: Normal inspection, Full ROM. Denies: Muscle spasm, Rash noted, Tenderness - Neurological Neurological exam: Alert, Normal gait, Oriented X3, Reflexes normal - Psychiatric Psychiatric exam: Normal affect, Normal mood - Skin Skin exam: Erythema (on bilateral lower legs, receeding down below lines previously marked. Swelling noted in right foot> left. ) Assessment and Plan - Assessment and Plan (1) Cellulitis Current Visit: Yes Status: Acute Qualifiers: Site of cellulitis: extremity Site of cellulitis of extremity: lower extremity Laterality: unspecified laterality Qualified Code(s): L03.119 - Cellulitis of unspecified part of limb Base Code: L03.90 - CELLULITIS, UNSPECIFIED Comment: 08/01/16 Improving with antibiotics. Here for recurrent BLE cellulitis with history of IV antibiotic treatment with PIC line 5 years ago with complications that are unclear per patient history. No reported hx MRSA. Saw vascular specialist 5 years ago. Will be obtaining previous hospital records for an acurate account of historical events. Venous doppler done on 07/30 to rule out DVT and negative. PIC line in patient and doing well. (2) DVT prophylaxis Current Visit: Yes Status: Acute Base Code: [id number] - Comment: 08/01/16 will D/c lovenox since on brilanta and aspirin. Observing patient for possible error of patient taking 3 tabs of brilanta yesterday. VS stable and no sites of active bleeding. (3) Full code status Current Visit: Yes Status: Acute Base Code: Z78.9 - OTHER SPECIFIED HEALTH STATUS Comment: 07/30/16 Will remain full code status during this hospitalization (4) COPD (chronic obstructive pulmonary disease) Current Visit: Yes Status: Chronic Qualifiers: COPD type: COPD with acute exacerbation Qualified Code(s): J44.1 - Chronic obstructive pulmonary disease with (acute) exacerbation Base Code: J44.9 - CHRONIC OBSTRUCTIVE PULMONARY DISEASE, UNSPECIFIED Comment: 08/01/16 Continue with Symbicort 160/4.5 2 puffs QD as per home regimen Stable per patient report Does smoke intermittently and report she has not experienced any cravings since admission, advised to let nursing know if she feels she need a patch (5) Diabetes mellitus type 2 in obese Current Visit: Yes Status: Chronic Base Code: E11.9 - TYPE 2 DIABETES MELLITUS WITHOUT COMPLICATIONS; E66.9 - OBESITY, UNSPECIFIED Comment: 08/01/16 Known diabetic, reports poor adherance to diabetic diet, continue Metformin 500mg BID as per home regimen. (6) HTN (hypertension) Current Visit: Yes Status: Chronic Base Code: I10 - ESSENTIAL (PRIMARY) HYPERTENSION Comment: 08/01/16 BP under control, continue Metoprolol 25mg BID as per home dosing Results - Labs Result Diagrams: 08/01/16 06:05 08/01/16 06:05 Labs Last 24 Hours: Laboratory Results - last 24 hr 08/01/16 08/01/16 06:05 06:05 WBC 6.2 RBC 3.90 Hgb 12.6 Hct 38.9 MCV 99.7 H MCH 32.3 MCHC 32.4 RDW 15.0 H Plt Count 244 MPV 10.7 H Gran % 49.0 Lymphocytes % 34.5 Monocytes % 10.9 H Eosinophils % 5.3 Basophils % 0.3 Sodium 139 Potassium 4.2 Chloride 99 Carbon Dioxide 29.3 Anion Gap 10.7 BUN 13 Creatinine 0.7 Estimated GFR > 60 Random Glucose 156 H Calcium 8.8 Total Bilirubin 0.45 AST 34 ALT 46 Alkaline Phosphatase 90 Total Protein 6.6 Albumin 3.6 Globulin 3.0 Albumin/Globulin Ratio 1.2 DVT/PE Assessment - Risk for VTE Risk for VTE: No Risk Level: Moderate Risk Assessment Date: 07/30/16 Risk Assessment Time: 10:16 VTE Orders Placed or Will Be Placed: Yes - Active Medicaitons Current Medications: Current Medications Acetaminophen/Hydrocodone Bitart (Union 7.5mg/325mg) 1 each PO Q6H PRN PRN Reason: Pain - General Last Admin: 08/01/16 08:53 Dose: 1 each Aspirin (Ecotrin (Ec)) 81 mg PO 0800 [facility] Last Admin: 08/01/16 08:10 Dose: 81 mg Atorvastatin Calcium (Lipitor) 40 mg PO 1999 [facility] Last Admin: 07/31/16 20:56 Dose: 40 mg Diazepam (Valium) 5 mg PO Q8H PRN PRN Reason: ANXIETY Last Admin: 07/31/16 13:39 Dose: 5 mg Diazepam (Valium) 10 mg PO Q8H PRN PRN Reason: ANXIETY Last Admin: 07/31/16 14:28 Dose: 5 mg Enoxaparin Sodium (Lovenox) 40 mg SC 1999 [facility] Last Admin: 07/31/16 20:58 Dose: 40 mg Fluoxetine HCl (Prozac) 40 mg PO 0800 [facility] Last Admin: 08/01/16 08:10 Dose: 40 mg Heparin Sodium (Porcine) () 500 unit IVP ASDIR PRN PRN Reason: flush after saline Cefazolin Sodium 2 gm/ Glucose 50 mls @ 125 mls/hr IVPB Q8H [facility] Stop: 08/03/16 23:40 Last Admin: 08/01/16 08:09 Dose: 125 mls/hr Vancomycin HCl 1,500 mg/ (Sodium Chloride) 500 mls @ 250 mls/60 min IVPB BID [facility] Stop: 08/04/16 11:31 Last Admin: 08/01/16 10:54 Dose: 250 mls/60 min Sodium Chloride () 1,000 mls @ 125 mls/hr IV .Q8H PRN PRN Reason: LARGE VOLUME IV Last Admin: 07/31/16 11:13 Dose: 125 mls/hr Metformin HCl (Glucophage Ir) 500 mg PO 799,1999 [facility] Last Admin: 08/01/16 08:09 Dose: 500 mg Metoprolol Tartrate (Lopressor) 25 mg PO 799,1999 [facility] Last Admin: 08/01/16 08:09 Dose: 25 mg Pantoprazole Sodium (Protonix) 40 mg PO DAILYAC [facility] Last Admin: 08/01/16 06:00 Dose: 40 mg Patient Own Medication () 1 each PO 799,1999 [facility] Last Admin: 08/01/16 08:44 Dose: Not Given Patient Own Medication () 1 each INH 799,1999 [facility] Last Admin: 08/01/16 08:03 Dose: 2 each Patient Own Medication () 1 each INH 0800 [facility] Last Admin: 08/01/16 08:04 Dose: 1 each Sodium Chloride () 10 ml IVP Q12H PRN PRN Reason: flush Tramadol HCl (Ultram) 50 mg PO Q8H PRN PRN Reason: BREAKTHROUGH PAIN AMI Plan - Labs Result Diagrams: 08/01/16 06:05 08/01/16 06:05
[2016-08-01] MEDS: 0.9 % SODIUM CHLORIDE 1000ML 1,000 ML IV PRN (18:46)
[2016-08-01] MEDS: ATORVASTATIN 20 MG TABLET PO SCH (20:31)
[2016-08-02] MEDS: CEFAZOLIN 2 Gram 2 GM in DEXTROSE 1 BAG IVPB SCH ×2 (01:15→07:31)
[2016-08-02] MEDS: HYDROCODONE/APAP 7.5/325MG TABLET PO PRN ×2 (04:03→09:43)
[2016-08-02] MEDS: PANTOPRAZOLE SODIUM 40 MG TABLET PO SCH (06:03)
[2016-08-02] MEDS: METFORMIN 500 MG TABLET PO SCH (07:36)
[2016-08-02] MEDS: ASPIRIN 81 MG TABEC PO SCH (07:36)
[2016-08-02] MEDS: METOPROLOL TART 25 MG TABLET PO SCH (07:37)
[2016-08-02] MEDS: FLUOXETINE HCL 20 MG CAPSULE PO SCH (07:37)
[2016-08-02] MEDS: PATIENT OWN MED: PO SCH (07:38)
--- NOTE | 2016-08-02 07:39 | US VENOUS DOPPLER REPORT ---
EXAM: EMERGENCY VENOUS DOPPLER ULTRASOUND OF THE LOWER EXTREMITIES BILATERALLY HISTORY: CELLULITIS, POSSIBLE DVT. TECHNIQUE: Venous Doppler ultrasound of the lower extremities was performed bilaterally with color flow and spectral analysis. Compression and flow augmentation maneuvers were also utilized. Comparison: None. FINDINGS: RIGHT LOWER EXTREMITY: The venous anatomy from the inguinal region through the popliteal region was reasonably well seen and appeared negative with flow evident throughout. Compressibility and flow augmentation was also demonstrated. The teacher industrial arts states, however, that the venous anatomy of the calf was not clearly visualized which she attributed to a combination of body habitus and calf edema. LEFT LOWER EXTREMITY: Similar to the right side, the venous anatomy on the left was reasonably well seen from the inguinal region through the popliteal region with no DVT evident in these structures. Compressibility and flow augmentation evident, however, also similar to the right side, the venous anatomy of the calf was not clearly seen. IMPRESSION: 1. NO EVIDENCE OF DVT IN THE INGUINAL REGION THROUGH THE POPLITEAL REGIONS BILATERALLY. 2. THE VENOUS ANATOMY OF THE CALF WAS NOT CLEARLY VISUALIZED ON EITHER LOWER EXTREMITY. JOB NUMBER: [id number] [facility]
--- NOTE | 2016-08-02 07:41 | RADIOLOGY REPORT ---
EXAM: PORTABLE CHEST HISTORY: PICC LINE. TECHNIQUE: A portable frontal view of the chest was obtained. Comparison: Prior chest 07/07/16. FINDINGS: The tip of the left PIC catheter is likely in the proximal SVC. No pneumothorax. The lungs are clear. The heart size is stable. IMPRESSION: THE TIP OF THE PIC IS IN THE PROXIMAL SVC. JOB NUMBER: [id number] [facility]
[2016-08-02] MEDS: PATIENT OWN MED: INH SCH ×2 (08:05→08:06)
--- NOTE | 2016-08-02 09:23 | Discharge Summary ---
Providers Discharge Summary Date: 08/02/16 Date of admission: 07/29/16 23:14 Expected Date of Discharge: 08/02/16 Attending physician: REED TRUJILLO Primary care physician: KRISTY DAVID M.D. Physical Exam - Vital Signs Vital Signs: Vital Signs - Last 24 Hrs Temp Pulse Pulse Resp BP Pulse Ox 08/02/16 07:48 76 20 08/02/16 07:30 97.6 F 71 18 127/61 92 L 08/01/16 21:07 71 20 94 L 08/01/16 20:18 97.8 F 71 22 120/72 92 L 08/01/16 10:56 67 18 120/63 94 L - General General Appearance: Alert, Oriented x3, Cooperative, No acute distress Limitations: No limitations - Head Head exam: Normal inspection - Eye Eye exam: Normal appearance, PERRL. negative: Conjunctival injection - ENT ENT exam: Normal exam Ear exam: Normal external inspection Nasal Exam: Normal inspection Mouth exam: Normal external inspection Teeth exam: Normal inspection Throat exam: Normal inspection - Neck Neck exam: Normal inspection, Full ROM. negative: Tenderness - Respiratory Respiratory exam: Normal lung sounds bilaterally. negative: Respiratory distress - Cardiovascular Cardiovascular Exam: Regular rate, Normal rhythm, Normal heart sounds - GI/Abdominal GI/Abdominal exam: Soft - Rectal Rectal exam: Deferred - exam: Deferred - Extremities Extremities exam: Full ROM, Normal capillary refill, Pedal edema, Tenderness. negative: Normal inspection - Back Back exam: Reports: Normal inspection, Full ROM. Denies: Muscle spasm, Rash noted, Tenderness - Neurological Neurological exam: Alert, Normal gait, Oriented X3, Reflexes normal - Psychiatric Psychiatric exam: Normal affect, Normal mood - Skin Skin exam: Erythema (on bilateral lower legs, receeding down below lines previously marked. Swelling noted in right foot> left. ) Hospitalization - Hospitalization Admission Diagnosis: Cellulitis, Diabetes - Problem List/Discharge Diagnosis (1) Cellulitis Current Visit: Yes Status: Acute Discharge Diagnosis: Site of cellulitis: extremity Site of cellulitis of extremity: lower extremity Laterality: unspecified laterality Qualified Code(s): L03.119 - Cellulitis of unspecified part of limb Base Code: L03.90 - CELLULITIS, UNSPECIFIED Comment: 08/02/16 Significantly improving with antibiotics. Here for recurrent BLE cellulitis with history of IV antibiotic treatment with PIC line 5 years ago with complications that are unclear per patient history. No reported hx MRSA. Saw vascular specialist 5 years ago. Will be obtaining previous hospital records for an acurate account of historical events. Venous doppler done on 07/30 to rule out DVT and negative. PIC line in patient and doing well. Will treat with outpatient vanco for 10 more days and oral keflex q6. (2) DVT prophylaxis Current Visit: Yes Status: Acute Base Code: [id number] - Comment: 08/02/16 will D/c lovenox since on brilanta and aspirin. Observing patient for possible error of patient taking 3 tabs of brilanta yesterday. VS stable and no sites of active bleeding. (3) COPD (chronic obstructive pulmonary disease) Current Visit: Yes Status: Chronic Discharge Diagnosis: COPD type: COPD with acute exacerbation Qualified Code(s): J44.1 - Chronic obstructive pulmonary disease with (acute) exacerbation Base Code: J44.9 - CHRONIC OBSTRUCTIVE PULMONARY DISEASE, UNSPECIFIED Comment: 08/02/16 Continue with Symbicort 160/4.5 2 puffs QD as per home regimen Stable per patient report Does smoke intermittently and report she has not experienced any cravings since admission, advised to let nursing know if she feels she need a patch (4) Diabetes mellitus type 2 in obese Current Visit: Yes Status: Chronic Base Code: E11.9 - TYPE 2 DIABETES MELLITUS WITHOUT COMPLICATIONS; E66.9 - OBESITY, UNSPECIFIED Comment: 08/02/16 Known diabetic, reports poor adherance to diabetic diet, continue Metformin 500mg BID as per home regimen. Last A1c 7.8 per patient.. (5) HTN (hypertension) Current Visit: Yes Status: Chronic Base Code: I10 - ESSENTIAL (PRIMARY) HYPERTENSION Comment: 08/02/16 BP under control, continue Metoprolol 25mg BID as per home dosing (6) Smoking Current Visit: Yes Status: Chronic Base Code: F17.200 - NICOTINE DEPENDENCE , UNSPECIFIED, UNCOMPLICATED Comment: 08/02- patient attempting to quit, aware of the importance for healing. Spoke about this for over 10 min (7) Full code status Current Visit: Yes Status: Acute Base Code: Z78.9 - OTHER SPECIFIED HEALTH STATUS Comment: 07/30/16 Will remain full code status during this hospitalization - Hospitalization Course Disposition: Home, Self-Care Procedures: Imaging and X-Rays 07/30/16 07:27 VENOUS DOPPLER LOWER EXT TIMI [US] Stat 07/31/16 16:12 CXR [CHEST AP or PA ONLY] [RAD] Stat Abnormal Labs: Abnormal Lab Results 07/30/16 07/30/16 07/30/16 Range/Units 00:15 06:10 07:00 MCV 98.8 H (81-97) fl RDW 15.0 H (11.5-14.5) % MPV 10.6 H (7.4-10.4) fl Monocytes % 11.0 H (0-9) % Chloride 95 L (98-107) mmol/L POC Glucose (70-110) mg/dL Random Glucose 180 H (70-110) mg/dL Vancomycin Peak 14.9 L (18-26) ug/mL 08/01/16 08/01/16 08/02/16 Range/Units 06:05 06:05 07:40 MCV 99.7 H (81-97) fl RDW 15.0 H (11.5-14.5) % MPV 10.7 H (7.4-10.4) fl Monocytes % 10.9 H (0-9) % Chloride (98-107) mmol/L POC Glucose 128 H (70-110) mg/dL Random Glucose 156 H (70-110) mg/dL Vancomycin Peak (18-26) ug/mL Condition at Discharge: (1) Good Discharge Medications - Discharge Medications Prescriptions: Cephalexin [Keflex] 500 mg PO QID #40 cap Tramadol HCl [Ultram] 50 mg PO Q8H PRN #30 tablet PRN Reason: Breakthrough Pain Home Medications: Ambulatory Orders Aclidinium Angelica [Tudorza Pressair] 1 inh IH BID MDD 2 09/24/15 [Last Taken Unknown] Fluoxetine HCl [Prozac] 40 mg PO DAILY 09/24/15 [Last Taken Unknown] Tramadol HCl [Ultram] 50 mg PO Q8H PRN 09/24/15 [Last Taken Unknown] Aspirin [Aspir-Low] 81 mg PO DAILY 07/07/16 [Last Taken Unknown] Atorvastatin Calcium [Lipitor] 40 mg PO DAILY 07/07/16 [Last Taken Unknown] Budesonide/Formoterol Fumarate [Symbicort 160-4.5 Mcg Inhaler] 2 puff IH BID MDD 4 07/07/16 [Last Taken Unknown] Metoprolol Tartrate [Lopressor] 25 mg PO Q12H 07/07/16 [Last Taken Unknown] Omeprazole 40 mg PO DAILY 07/07/16 [Last Taken Unknown] Ticagrelor [Brilinta] 90 mg PO BID 07/07/16 [Last Taken Unknown] Zolpidem Tartrate 10 mg PO QHS PRN 07/07/16 [Last Taken Unknown] Calcium Carbonate [Calcium] 600 mg PO DAILY 07/29/16 [Last Taken Unknown] Cholecalciferol (Vitamin D3) [Vitamin D3] 5,000 unit PO DAILY 07/29/16 [Last Taken Unknown] Cyanocobalamin (Vitamin B-12) [Vitamin B-12] 2,000 mcg PO DAILY 07/29/16 [Last Taken Unknown] Garlic 1,000 mg PO DAILY 07/29/16 [Last Taken Unknown] Metformin HCl [Glucophage] 500 mg PO BID 07/29/16 [Last Taken Unknown] Multivitamin [Daily Multiple Vitamin] 1 each PO DAILY 07/29/16 [Last Taken Unknown] Cephalexin [Keflex] 500 mg PO QID #40 cap 08/02/16 [Last Taken Unknown] Tramadol HCl [Ultram] 50 mg PO Q8H PRN #30 tablet 08/02/16 [Last Taken Unknown] Vancomycin/0.9 % Sod Chloride [Vanco 500 mg/100 ml-0.9% NaCl] 500 mg IV BID 10 Days 08/02/16 [Last Taken Unknown] Discharge Plan - Discharge Instructions Activity at Discharge: Increase Activity as Tolerated Diet at Discharge: Diabetic Diet
[2016-08-02] MEDS: VANCOMYCIN HCL 1,500 MG in 0.9 % SODIUM CHLORIDE 500ML 500 ML IVPB SCH (09:43)
== END 2016-08-02 13:09 | disposition home or self-care (01) | DRG 603 ==
LOC: ER 19:56 → MEDSURG 23:14
PROVIDERS: ADMIT Family Medicine; ATTEND Family Medicine
DX: L03.116 Cellulitis of left lower limb (principal); J44.1 Chronic obstructive pulmonary disease with (acute) exacerbation; L03.115 Cellulitis of right lower limb; E11.9 Type 2 diabetes mellitus without complications; Z79.84 Long term (current) use of oral hypoglycemic drugs; I10 Essential (primary) hypertension; Z78.9 Other specified health status; I25.2 Old myocardial infarction; F17.200 Nicotine dependence, unspecified, uncomplicated
CPT/HCPCS: 36416; 71010; 80048; 80053; 80202; 82948; 83880; 85025; 85610; 85651; 85730; 86140; 93970; 94640; 94760; 94761; 96374; 96375; 99233; 99239; 99285; J1650; J7040

== ENCOUNTER 2017-01-09 16:00 | Emergency (ER) | payer BC, MEDICARE ==
[2017-01-09] MEDS ORDERED: ASPIRIN 81 MG CHEWABLE TABLET PO ONE (16:18)
[2017-01-09] MEDS ORDERED: HEPARIN SODIUM 1000 UNIT/1 ML 10ML VIAL IVP ONE (16:21)
[2017-01-09 16:28] LABS: BASO % 0.5 % (0-6); EOS % 4.7 % (0-6); GRAN % 58.9 % (47-80); HEMOGLOBIN 14.1 gm/dl (11.6-16.0); MEAN CELL VOLUME 97.4 fl (81-97); MEAN CORPUSCULAR HEMOGLOBIN 32.7 pg (27-33); MEAN CORPUSCULAR HGB CONC 33.6 g/dl (32-36); MEAN PLATELET VOLUME 10.5 fl (7.4-10.4); MONO % 9.9 % (0-9); PLATELET COUNT 291 K/uL (130-400); RED BLOOD COUNT 4.31 M/uL (3.80-5.40); RED CELL DISTRIBUTION WIDTH 14.9 % (11.5-14.5); WHITE BLOOD COUNT W/O DIFF 8.5 K/uL (4.2-12.2)
[2017-01-09] MEDS ORDERED: NITROGLYCERIN/D5W 50 MG/250 ML ML IV SCH (16:30)
[2017-01-09] MEDS ORDERED: HEPARIN SODIUM/D5W 25,000 UNITS/500 ML BAG IV SCH (16:30)
--- NOTE | 2017-01-09 16:41 | Emergency Department Record ---
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 it feels like her previous mi. Complaint: Chest pain Onset/Timin -: Hour(s) Onset: Other Pain Location: Substernal Severity scale (1-10): 8 Quality: Aching Consistency: Constant Improves With: Nitroglycerin Worsens With: Nothing Anginal Symptoms: Dyspnea Other Symptoms: Burping Treatments Prior to Arrival: Nitroglycerin Treatment Prior to Arrival Comment:: 2 nitro sl - Related Data Home Medications Medication Instructions Recorded Confirmed Last Taken Aclidinium [place] [Tudorza 1 inh IH BID MDD 2 09/24/15 07/31/16 Unknown Pressair] Fluoxetine HCl [Prozac] 40 mg PO DAILY 09/24/15 07/29/16 Unknown Tramadol HCl [Ultram] 50 mg PO Q8H PRN 09/24/15 07/29/16 Unknown Aspirin [Aspir-Low] 81 mg PO DAILY 07/07/16 07/29/16 Unknown Atorvastatin Calcium [Lipitor] 40 mg PO DAILY 07/07/16 07/29/16 Unknown Budesonide/Formoterol Fumarate 2 puff IH BID MDD 4 07/07/16 07/31/16 Unknown [Symbicort 160-4.5 Mcg Inhaler] Metoprolol Tartrate [Lopressor] 25 mg PO Q12H 07/07/16 07/29/16 Unknown Omeprazole 40 mg PO DAILY 07/07/16 07/29/16 Unknown Ticagrelor [Brilinta] 90 mg PO BID 07/07/16 07/29/16 Unknown Zolpidem Tartrate 10 mg PO QHS PRN 07/07/16 07/29/16 Unknown Calcium Carbonate [Calcium] 600 mg PO DAILY 07/29/16 07/29/16 Unknown Cholecalciferol (Vitamin D3) 5,000 unit PO DAILY 07/29/16 07/29/16 Unknown [Vitamin D3] Cyanocobalamin (Vitamin B-12) 2,000 mcg PO DAILY 07/29/16 07/29/16 Unknown [Vitamin B-12] Garlic 1,000 mg PO DAILY 07/29/16 07/29/16 Unknown Metformin HCl [Glucophage] 500 mg PO BID 07/29/16 07/29/16 Unknown Multivitamin [Daily Multiple 1 each PO DAILY 07/29/16 07/29/16 Unknown Vitamin] Previous Rx's Medication Instructions Recorded Cephalexin [Keflex] 500 mg PO QID #40 cap 08/02/16 Tramadol HCl [Ultram] 50 mg PO Q8H PRN #30 tablet 08/02/16 Vancomycin/0.9 % Sod Chloride 500 mg IV BID 10 Days 08/02/16 [Vanco 500 mg/100 ml-0.9% NaCl] Allergies Allergy/AdvReac Type Severity Reaction Status Date / Time Penicillins [PENICILLINS] Allergy Intermediate HIVES Verified 01/09/17 16:12 clindamycin HCl Allergy RASH Verified 01/09/17 16:12 [From Cleocin] clindamycin palmitate HCl Allergy RASH Verified 01/09/17 16:12 [From Cleocin] clindamycin phosphate Allergy RASH Verified 01/09/17 16:12 [From Cleocin] Travel Screening - Travel/Exposure Within Last 30 Days Have you traveled within the last 30 days?: No - Travel/Exposure Within Last Year Have you traveled outside the [place] in the last year?: No - Additonal Travel Details Have you been exposed to anyone with a communicable illness?: No - Travel Symptoms Symptom Screening: None Review of Systems Reviewed: No additional complaints except as noted below Constitutional: Reports: As per HPI. Denies: Chills, Fever, Malaise, Night sweats, Weakness, Weight change Eyes: Reports: As per HPI. Denies: Eye discharge, Eye pain, Photophobia, Vision change ENT: Reports: As per HPI. Denies: Congestion, Dental pain, Ear pain, Epistaxis , Hearing loss, Throat pain Respiratory: Reports: As per HPI. Denies: Cough, Dyspnea, Hemoptysis, Stridor, Wheezes Cardiovascular: Reports: As per HPI. Denies: Arrhythmia, Chest pain, Dyspnea on exertion, Edema, Murmurs, Orthopnea, Palpitations, Paroxysmal nocturnal dyspnea, Rheumatic Fever, Syncope Endocrine: Reports: As per HPI. Denies: Fatigue, Heat or cold intolerance, Polydipsia, Polyuria Gastrointestinal: Reports: As per HPI. Denies: Abdominal pain, Constipation, Diarrhea, Hematemesis, Hematochezia, Melena, Nausea, Vomiting Genitourinary: Reports: As per HPI. Denies: Abnormal menses, Discharge, Dyspareunia, Dysuria, Frequency, Hematuria, Incontinence, Retention, Urgency Musculoskeletal: Reports: As per HPI. Denies: Arthralgia, Back pain, Gout, Joint swelling, Myalgia, Neck pain Skin: Reports: As per HPI. Denies: Bruising, Change in color, Change in hair/ nails, Lesions, Pruritus, Rash Neurological: Reports: As per HPI. Denies: Abnormal gait, Confusion, Headache, Numbness, Paresthesias, Seizure, Tingling, Tremors, Vertigo, Weakness Psychiatric: Reports: As per HPI. Denies: Anxiety, Auditory hallucinations, Depression, Homicidal thoughts, Suicidal thoughts, Visual hallucinations Hematological/Lymphatic: Reports: As per HPI. Denies: Anemia, Blood Clots, Easy bleeding, Easy bruising, Swollen glands Past Medical History - SOCIAL HISTORY Smoking Status: Light tobacco smoker (<10/day) Alcohol Use: None Drug Use: None - RESPIRATORY Hx Respiratory Disorders: Yes Hx COPD: Yes - CARDIOVASCULAR Hx Cardio Disorders: No Hx Cardiac Cath: Yes Hx Heart Attack: Yes (Stent placed 09/24/2015) Comment:: Heart attack September [id number] - NEURO Hx Neuro Disorders: No - GI Hx GI Disorders: Yes Hx Reflux: Yes - Hx Genitourinary Disorders: No - ENDOCRINE Hx Endocrine Disorders: Yes Hx Diabetes: Yes - MUSCULOSKELETAL Hx Musculoskeletal Disorders: Yes Hx Arthritis: Yes - PSYCH Hx Psych Problems: Yes Hx Anxiety: Yes - HEMATOLOGY/ONCOLOGY Hx Hematology/Oncology Disorders: No Family Medical History Any Significant Family History?: Yes Hx Diabetes: Mother, Brother/Sister Hx Heart Disease: Father *Heart Comment: Father before 50, of [place] Hx HTN: Father, Mother, Brother/Sister Physical Exam - General General Appearance: Alert, Oriented x3, Cooperative, Mild distress - Head Head exam: Normal inspection - Eye Eye exam: Normal appearance, PERRL, EOMI Pupils: Normal accommodation - ENT ENT exam: Normal exam, Mucous membranes moist, Normal external ear exam, Normal orophraynx Ear exam: Normal external inspection. negative: External canal tenderness Nasal Exam: Normal inspection. negative: Discharge, Sinus tenderness Mouth exam: Normal external inspection, Tongue normal Teeth exam: Normal inspection. negative: Dental caries Throat exam: Normal inspection. negative: Tonsillar erythema, Tonsillar exudate - Neck Neck exam: Normal inspection, Full ROM. negative: Tenderness - Respiratory Respiratory exam: Normal lung sounds bilaterally. negative: Respiratory distress - Cardiovascular Cardiovascular Exam: Regular rate, Normal rhythm, Normal heart sounds - GI/Abdominal GI/Abdominal exam: Soft, Normal bowel sounds. negative: Tenderness - Rectal Rectal exam: Deferred - exam: Deferred - Extremities Extremities exam: Normal inspection, Full ROM, Normal capillary refill. negative: Tenderness - Back Back exam: Reports: Normal inspection, Full ROM. Denies: Muscle spasm, Rash noted, Tenderness - Neurological Neurological exam: Alert, CN II-XII intact, Normal gait, Oriented X3 - Psychiatric Psychiatric exam: Normal affect, Normal mood - Skin Skin exam: Dry, Intact, Normal color, Warm Course Vital Signs 01/09/17 16:18 Temperature 97.8 F Pulse Rate 68 Respiratory 20 Rate Blood Pressure 122/74 Pulse Ox 95 Medical Decision Making - Lab Data Result diagrams: 01/09/17 16:15 01/09/17 16:15 Lab Results 01/09/17 Range/Units 16:15 WBC 8.5 (4.2-12.2) K/uL RBC 4.31 (3.80-5.40) M/uL Hgb 14.1 (11.6-16.0) gm/dl Hct 42.0 (35.0-47.0) % MCV 97.4 H (81-97) fl MCH 32.7 (27-33) pg MCHC 33.6 (32-36) g/dl RDW 14.9 H (11.5-14.5) % Plt Count 291 (130-400) K/uL MPV 10.5 H (7.4-10.4) fl Gran % 58.9 (47-80) % Lymphocytes % 26.0 (16-45) % Monocytes % 9.9 H (0-9) % Eosinophils % 4.7 (0-6) % Basophils % 0.5 (0-6) % Disposition Disposition: Transfer Transfer To: [facility] 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
[2017-01-09 16:42] LABS: ANION GAP 8.6 (7-16); BLOOD UREA NITROGEN 12 mg/dL (7-17); CARBON DIOXIDE 28.4 mmol/L (22-30); CREATINE PHOSPHOKINASE 60 U/L (30-135); CREATININE 0.6 mg/dL (0.52-1.04); EST GLOMERULAR FILTRATION RATE > 60 ml/min; GLUCOSE,RANDOM 127 mg/dL (70-110)
[2017-01-09 16:55] LABS: CKMB 0.6 ug/L (0-6); TROPONIN I < 0.012 ng/mL (0.00-0.034)
--- NOTE | 2017-01-11 09:01 | RADIOLOGY REPORT ---
EXAM: CHEST, SINGLE VIEW HISTORY: CHEST PAIN FOR THE PAST TWO HOURS. TECHNIQUE: A single portable AP semi-upright view of the chest was performed. Comparison: 07/31/16. FINDINGS: There are low lung volumes. The heart, mediastinum, and pulmonary vasculature are normal. There are no acute infiltrates or effusions. There is no pneumothorax. The visualized osseous structures appear intact. IMPRESSION: 1. LOW LUNG VOLUMES. 2. NO ACUTE CHEST PATHOLOGY. JOB NUMBER: [id number] MTDD
== END 2017-01-09 18:08 | disposition short-term general hospital (02) ==
LOC: ER 16:00
DX: R07.2 Precordial pain (principal); R06.00 Dyspnea, unspecified; I25.2 Old myocardial infarction; F17.210 Nicotine dependence, cigarettes, uncomplicated
CPT/HCPCS: 71010; 80048; 82550; 82553; 83874; 84484; 85025; 85730; 93005; 93010; 96365; 96366; 96368; 96374; 99285